=== PATIENT | male | born 1985 | race Caucasian/White ===

== ENCOUNTER 2025-03-29 02:44 | Emergency (ER) | payer SELFPAY ==
--- OUTSIDE RECORDS SUMMARY | 2025-03-29 02:46 | XMS_ITS | Continuity of Care Document ---
Author Organization [facility] Address [address] [place] [address] Phone Care Team Providers Care Car Cleaner Name Role Phone Conversion MD, Doctor Unavailable Unavailabl e Medications Medication Instructions Dosage Effective Dates (start - stop) Status Comments BROMPHENIRAMINE W/PSEUDOEPHED 1 Q 12HR - Active for allergies & congestion Advance Directives Directive Yes / No Effective Date File Name No Information Encounters Encounter Description Practice Location Reason(s) For Visit Diagnoses Date Provider Providers Copied on Encounter [facility], [address], [place], [place], [id number], tel:[phone] Conversion Department No Information 6-201 1 Conversion Doctor. [facility], [place], [address], . [facility], [address], [place], [place], [address], tel:[phone] Luis F Hernandez ALLERGIC RHINITIS NOS 2-200 1 [address] Reeves. [address], [address], [place], [place], [address]. tel:[phone] Family History Family Member Type Diagnosis Age At Onset No Information Payers Payer name Insurance type Covered democrat ID Authoriza tion(s) No Information Social History Type Description Quantity Date Captured Comments Sex Male Smoking Status No Information Sexual Orientation Straight or heterosexual Chief Complaint And Reason For Visit No Information Reason For Referral Reason For Referral No Information History Of Present Illness Encounter Date Complaint History Of Prese nt Illness No Information Functional Status Date Functional Assessmen t No Information Instructions Date Instruction Additional Infor mation No Information Assessments Type Assessment Date No Information Patient Care Teams Name Effective Dates (start - stop) Status Members No Information
--- OUTSIDE RECORDS SUMMARY | 2025-03-29 02:46 | XMS_ITS | Continuity of Care Document ---
Author Name Manasa Menezes Address [address] [facility] [place] [address] Organization Unknown Address [address] [place], [place] [id number] [place] [address] Medications No known medications Problems No known problems
--- OUTSIDE RECORDS SUMMARY | 2025-03-29 02:46 | XMS_ITS | Continuity of Care Document ---
Author Name Manasa Menezes Address [address] [facility] [place] [address] Organization Unknown Address [address] [facility] [place] [address] Medications No known medications Problems No known problems
[2025-03-29 02:50] VITALS: BP 145/91; PULSE 71; RESP 17; TEMP 36.4; O2SAT 98
--- NOTE | 2025-03-29 03:39 | ED_ITS ---
HPI - Allergic Reaction General Chief complaint: Allergic Reaction Stated complaint: allergic reaction Time Seen by Provider: 03/29/25 03:03 History of Present Illness HPI narrative: 39-year-old male presenting to the emergency department for generalized body rash in suspected allergic reaction. Patient states that he woke up from sleep to go the bathroom and was having some abdominal cramping and diarrhea as well as nauseousness that started developing into a full-body generalized rash and difficulty breathing. He was given Claritin and diphenhydramine by his significant other and had significant improvement his symptoms prior to arrival to the emergency department. No history of anaphylaxis or history of allergic reactions in recent memory. Denies any new exposures, laundry detergents, clothing changes, new foods. He states that he had allergy testing in childhood and underwent several immuno shots when he was 9 years old but nothing recent. Went to bed in his normal state of health. Does not have an epinephrine autoinjector at home. No significant pertinent past medical history otherwise. Was otherwise in his normal state of health. Only contributing collateral formation was that patient was at a outdoor concert venue earlier this afternoon prior to symptom onset this evening. Patient's symptoms are including a generalized urticarial rash that is no longer itchy after Benadryl but his shortness of breath, diarrhea and abdominal cramping and nausea have all resolved. Related Data Allergies Allergy/AdvReac Type Severity Reaction Status Date / Time No Known Allergies Allergy Unverified 09/04/22 14:40 Review of Systems 2 Review of Systems: As reviewed above in HPI [facility] Past Medical History Medical History Eczema Family History Family History Father Diabetes mellitus Hypertension Alcohol abuse Mother Hypertension Social History Social History Social History: Single Smoking status: Never smoker Second hand tobacco smoke exposure: No Alcohol intake: current Drinks per week: 2 Substance use: current Substance use type: marijuana Other substance usage details: Pt just uses gummies. Living arrangements: with family Occupation/Education: occupation Gender identity (if verbalized by the patient): Male Sexual Orientation (if Verbalized by the Patient): Straight or Heterosexual Exam 2 Narrative: GENERAL: [Well-appearing, well-nourished, and in no acute distress.] HEAD: [Normocephalic, atraumatic.] EYES: [PERRLA and EOMI.] ENT: Nares clear, no rhinorrhea or epistaxis. Mucous membranes moist. NECK: Supple. CHEST: [Clear to auscultation. No respiratory distress.] No wheezing or stridor HEART: [Regular rate and rhythm]. No murmur heard. [Normal peripheral pulses.] ABDOMEN: [Soft, nondistended], [nontender], [No rigidity or guarding] EXTREMITIES: Normal range of motion. [No edema.] SKIN: Urticarial rash generalized over the chest back, lower extremities and upper extremities. NEURO: [No focal deficits]. Alert and oriented [x3.] PSYCH: [Normal mood and affect.] Course Vital Signs Vital signs: Vital Signs Temperature 36.4 C 03/29/25 02:50 Pulse Rate 71 03/29/25 02:50 Respiratory Rate 17 03/29/25 02:50 Blood Pressure 145/91 H 03/29/25 02:50 Pulse Oximetry 98 03/29/25 02:50 Oxygen Delivery Room Air 03/29/25 02:50 Temperature 36.4 C 03/29/25 02:50 Pulse Rate 59 L 03/29/25 04:16 Respiratory Rate 14 03/29/25 04:16 Blood Pressure 130/89 03/29/25 04:16 Pulse Oximetry 100 03/29/25 04:16 Oxygen Delivery Room Air 03/29/25 03:01 MDM - Allergic Reaction MDM Narrative Medical decision making narrative: 39-year-old male with no pertinent past medical history presenting to the emergency department for signs and symptoms of potential anaphylaxis versus allergic reaction. Patient states that he woke up with a Hall 90s the regimen she was feeling abdominal cramping and had an episode diarrhea with vomiting and then developed a diffuse urticarial rash over his chest abdomen face and extremities. He was given Claritin and Benadryl by his family member present at bedside and all his symptoms have resolved aside from the rash that is still present. He states he was having shortness of breath and stridor at that time but this is resolved as well. Does not have an EpiPen at home but does not have any recent or new exposures to his knowledge aside from being an outside constant finding earlier this afternoon hours before the incident. No new foods and did not eat anything prior to going to bed or during the night. No new laundry detergents or household exposures to his knowledge. His symptoms do sound like potential initial anaphylaxis versus allergic reaction but clinically he is hemodynamically stable with no symptoms other than urticarial rash at this time some no need for epinephrine at this juncture but we did discuss that if he has any recurrence of the symptoms at home that he should have one so we will prescribe it upon discharge. At this point will obtain basic laboratory studies and give him a combination of medications to treat allergic reaction including Solu-Medrol 125, Pepcid 20, diphenhydramine 50. Patient will be observed here in the emergency department for symptom control and repeat evaluations prior to is likely safe discharge home upon completion of workup. Patient re-evaluated after several hours and states ?I feel 100% ?his urticarial rash is completely resolved and he has no symptoms at this time. He has remained on room air with no concerns on repeat examination. Patient will be sent home with a prescription for epinephrine as well as Pepcid and diphenhydramine to be taken as needed for allergic reaction symptoms and encouraged to contact an prison guard supervisor to follow-up with. Patient was given return precautions including if he uses EpiPen at home. Patient safely discharged home at this time. Medical Records Attestation: I reviewed the patient's medical records. Lab Data Attestation: I reviewed the patient's lab results. 03/29/25 03:58 03/29/25 03:58 Labs: Lab Results 03/29/25 Range/Units 03:58 WBC 6.6 (4.5-10.0) K/mm3 RBC 4.96 (4.6-6.20) M/mm3 Hgb 14.9 (14.0-18.0) g/dL Hct 43.7 (42.0-52.0) % MCV 88.1 (80-100) fl MCH 30.0 (26-34) pg MCHC 34.1 (32-36) g/dl RDW 12.4 (11.5-14.5) % Plt Count 267 (150-375) k/mm3 MPV 9.1 (7.4-10.4) fl Immature Gran % (Auto) 0.3 (0-0.5) % Neut % (Auto) 63.3 (45.5-73.1) % Lymph % (Auto) 21.8 (18.3-44.2) % [place] % (Auto) 9.9 H (2.6-8.5) % Eos % (Auto) 4.4 (0-4.4) % Baso % (Auto) 0.3 (0.2-1.2) % Lymph # (Auto) 1.43 (0.9-3.2) K/mm3 [place] # (Auto) 0.7 H (0.1-0.6) K/mm3 Eos # (Auto) 0.3 (0-0.3) K/mm3 Baso # (Auto) 0.0 (0.0-0.1) K/mm3 Abs Immat Gran (auto) 0.02 (0.00-0.031) K/mm3 Absolute Neuts (auto) 4.2 (1.3-6.7) K/mm3 Absolute Nucleated RBC 0.000 (0.0-0.012) K/mm3 Nucleated RBC % 0.0 (0.0-0.2) % Sodium 138 (137-145) mmol/L Potassium 3.6 (3.4-5.0) mmol/L Chloride 105 (98-107) mmol/L Carbon Dioxide 24 (22-30) mmol/L Anion Gap 9 (4-12) mmol/L BUN 25 H (9-20) mg/dL Creatinine 1.02 (0.7-1.3) mg/dL Estim Creat Clear Calc 94 ml/min Estimated GFR > 60 (59 - ) Glucose 109 (65-110) mg/dL Calcium 9.1 (8.4-10.2) mg/dL Discharge Plan Discharge Clinical Impression: Allergic reaction, Urticarial rash Patient Disposition: Home Condition: Stable Instructions: Antibiotic Form, Urticaria (ED), Anaphylaxis (ED) Additional Instructions: We will send you with a prescription for an auto injector epinephrine pen as well as Pepcid and diphenhydramine which can be taken as needed if you have any recurrence of symptoms of allergic reaction. Use the epinephrine pen if you feel short of breath or your throat is closing after exposure to an allergen. Follow-up with an prison guard supervisor on outpatient basis. Return with any emergent concerns or if you use your epinephrine pen. Patient Language: Kuwaiti Prescriptions: New epinephrine [EpiPen 2-Hector] 0.3 mg/0.3 mL auto-injector 0.3 mg IM Q5-15M PRN (Reason: anaphylaxis) Qty: 2 0RF Rx Instructions: do not exceed 3 doses per episode famotidine [Pepcid] 20 mg tablet 20 mg PO BID PRN (Reason: allergic reaction) Qty: 20 0RF diphenhydramine HCl [Allergy (diphenhydramine)] 25 mg capsule 50 mg PO TID PRN (Reason: allergic reaction) Qty: 20 0RF No Action clobetasol 0.05 % cream 1 applic topical QHS Qty: 45 0RF tacrolimus [Protopic] 0.1 % ointment 1 applic topical BID Qty: 60 0RF Follow-up/Referrals: Pretty Cox MD [Primary Care Provider] - Time of Disposition: 05:19
[2025-03-29] MEDS: FAMOTIDINE 20 MG/2 ML VIAL IV PUSH (03:45)
[2025-03-29] MEDS: methylPREDNISolone SOD SUCC 125 MG VIAL IV PUSH (03:45)
[2025-03-29] MEDS: diphenhydrAMINE HCl INJ 50 MG/ML VIAL IV PUSH (03:45)
[2025-03-29] MEDS: LACTATED RINGERS 1,000 ML 999 ML IV CONT (03:45)
[2025-03-29 04:03] LABS: Basophils Percent Auto 0.3 % (0.2-1.2); Eosinophils Absolute Auto 0.3 K/mm3 (0-0.3); Eosinophils Percent Auto 4.4 % (0-4.4); Hematocrit 43.7 % (42.0-52.0); Hemoglobin 14.9 g/dL (14.0-18.0); Immature Granulocyte Absolute 0.02 K/mm3 (0.00-0.031); Immature Granulocyte Percent A 0.3 % (0-0.5); Lymphocytes Absolute Auto 1.43 K/mm3 (0.9-3.2); Lymphocytes Percent Auto 21.8 % (18.3-44.2); Mean Corpuscular HGB Conc 34.1 g/dl (32-36); Mean Corpuscular Volume 88.1 fl (80-100); Mean Platelet Volume 9.1 fl (7.4-10.4); Monocytes Absolute Auto 0.7 K/mm3 (0.1-0.6); Monocytes Percent Auto 9.9 % (2.6-8.5); Neutrophils Absolute Auto 4.2 K/mm3 (1.3-6.7); Neutrophils Percent Auto 63.3 % (45.5-73.1); Platelet Count Result 267 k/mm3 (150-375); Red Blood Count 4.96 M/mm3 (4.6-6.20); Red Cell Distribution Width 12.4 % (11.5-14.5); White Blood Count 6.6 K/mm3 (4.5-10.0)
[2025-03-29 04:12] LABS: Anion Gap 9 mmol/L (4-12); Blood Urea Nitrogen 25 mg/dL (9-20); Calcium 9.1 mg/dL (8.4-10.2); Carbon Dioxide 24 mmol/L (22-30); Chloride 105 mmol/L (98-107); Estimated CRCL calculation 94 ml/min; Estimated Glomerular Filt Rate > 60; Glucose 109 mg/dL (65-110); Potassium 3.6 mmol/L (3.4-5.0); Sodium 138 mmol/L (137-145)
[2025-03-29 04:16] VITALS: BP 130/89; PULSE 59; RESP 14; O2SAT 100
--- OUTSIDE RECORDS SUMMARY | 2025-03-29 04:24 | XMS_ITS | Continuity of Care Document ---
Author Organization [employer] [facility] Address [address] [place] [address] Phone Care Team Providers Care Shop Assistant Name Role Phone Conversion MD, Doctor Unavailable Unavailabl e Medications Medication Instructions Dosage Effective Dates (start - stop) Status Comments BROMPHENIRAMINE W/PSEUDOEPHED 1 Q 12HR - Active for allergies & congestion Advance Directives Directive Yes / No Effective Date File Name No Information Encounters Encounter Description Practice Location Reason(s) For Visit Diagnoses Date Provider Providers Copied on Encounter [facility], [address], [place], [place], [address], tel:[phone] Conversion Department No Information 6-201 1 Conversion Doctor. [facility], [place], [address], . [facility], [address], [place], [place], [address], tel:[phone] Luis F Hernandez ALLERGIC RHINITIS NOS 2-200 1 [place] Reeves. [address], [place], [place], [address]. tel:[phone] Family History Family Member Type Diagnosis Age [...]
== END 2025-03-29 05:33 | disposition home or self-care (01) ==
PROVIDERS: Emergency Provider Student in an Organized Health Care Education/Training Program; PCP Family Medicine
DX: T78.40XA Allergy, unspecified, initial encounter (principal); L50.9 Urticaria, unspecified
CPT/HCPCS: 36415; 80048; 85025; 96361; 96374; 96375; 99284; J1200; J2919; J7120